=== PATIENT | male | born 2000 | race Caucasian/White ===

== ENCOUNTER 2019-06-17 09:54 | Emergency (ER) | payer BC | END 2019-06-17 10:39 | disposition home or self-care (01) | LOC: SCSER 09:54 | DX: A60.01 Herpesviral infection of penis (principal); J06.9 Acute upper respiratory infection, unspecified; F17.290 Nicotine dependence, other tobacco product, uncomplicated; Z71.6 Tobacco abuse counseling | CPT/HCPCS: 99406 ==